=== PATIENT | male | born 1965 | race Hispanic/Latino ===

== ENCOUNTER → 2020-02-04 | Emergency (ER) | payer OTHER ==
[~2020-02-04] VITALS: Ht 175.3 cm; Wt 129.3 kg
[~2020-02-04] MED LIST: OXYMETAZOLINE HCL 0.05% NAS 1 SPRAY BTL ONE
--- NOTE | 2020-02-04 06:13 | Emergency Department Note ---
History of Present Illnes History of Present Illness Chief Complaint: Eye, Ear, Nose, Throat, Dental History of Present Illness This is a 54 year old male arrives to the ED D with complaints of bleeding from his left Gross a few using a nostrum earlier in the day. Per patient bleeding has been intermittent and was generally controlled throughout the day. 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 Any updates have been documented here. Review of Systems Review of Systems Constitutional: Reports no symptoms EENTM: Reports other (nosebleed) Cardiovascular: Reports no symptoms Respiratory: Reports no symptoms Gastrointestinal: Reports no symptoms Genitourinary: Reports no symptoms Musculoskeletal: Reports no symptoms Integumentary: Reports no symptoms Neurological: Reports no symptoms Psychological: Reports no symptoms Endocrine: Reports no symptoms Hematological/Lymphatic: Reports no symptoms Physical Exam Related Data Vital signs reviewed: Yes Physical Exam CONSTITUTIONAL Constitutional: Present well-developed, Present well-nourished HENT HENT: Present normocephalic, Present atraumatic, Present oropharynx clear/moist, Present nasal discharge (slow bleed noted from left nare) HENT L/R: Present left ext ear normal, Present right ext ear normal EYES Eyes: Reports PERRL, Reports conjunctivae normal NECK Neck: Present ROM normal PULMONARY Pulmonary: Present effort normal, Present breath sounds normal CARDIOVASCULAR Cardiovascular: Present regular rhythm, Present heart sounds normal, Present capillary refill normal, Present normal rate GASTROINTESTINAL Abdominal: Present soft, Present nontender, Present bowel sounds normal GENITOURINARY Genitourinary: Present exam deferred SKIN Skin: Present warm, Present dry MUSCULOSKELETAL Musculoskeletal: Present ROM normal NEUROLOGICAL Neurological: Present alert, Present oriented x 3, Present no gross motor or sensory deficits PSYCHOLOGICAL Psychological: Present mood/affect normal, Present judgement normal Procedures Epistaxis Control Time out performed: Yes Nostril: left Direct inspection: anterior source identified Clots removed by: blowing nose Epistaxis treatment: nasal tampon Results of treatment: bleeding controlled, treatment well tolerated Complications: none Assessment & Plan Medical Decision Making MDM 54-year-old male arrives to the ED with bleeding from his left neck, anterior Rhino Rocket placed, patient tolerated well. Patient's bleeding controlled, stable for outpatient ENT follow-up Assessment & Plan Final Impression: (1) Epistaxis Depart Disposition: HOME, SELF-CARE Medications in the ED Oxymetazoline HCl 15 spray STK-MED ONCE .ROUTE ; Start 02/04/20 at 05:44; Stop 02/04/20 at 05:38; Status DC NIRALI MATOS, Feb 04, 2020 06:13
== END | disposition home or self-care (01) ==
LOC: ER 05:43
DX: R04.0 Epistaxis (principal); I10 Essential (primary) hypertension; Z85.6 Personal history of leukemia
CPT/HCPCS: 99282

== ENCOUNTER 2020-02-14 04:30 | Emergency (ER) | payer OTHER ==
[~2020-02-14] VITALS: Ht 175.3 cm; Wt 129.3 kg
--- NOTE | 2020-02-14 04:39 | NUR ---
RHINO ROCKET PLACED ON LEFT NOSTRIL BY DR PILLAI
[2020-02-14] MEDS ORDERED: OXYMETAZOLINE HCL 0.05% NAS 1 SPRAY BTL ONE ×2 (04:41→04:45)
[2020-02-14] MEDS ORDERED: CLONIDINE HCL 0.2 MG TAB ONE (04:41)
[2020-02-14] MEDS ORDERED: CLONIDINE HCL 0.2 MG TAB PO ONE (04:45)
--- NOTE | 2020-02-14 04:59 | Emergency Department Note ---
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 PATIENT WENT TO ENT DOCTOR FOR SAME CONCERN AND HAD A BLEEDING SPOT IN LEFT SIDE OF NOSE CAUTERIZED BY DR RUSSELL.. Historian: Patient Onset (how long ago): hour(s) (3) Location: LEFT NARE Quality: BLEEDING Radiation: Reports non-radiation Severity: moderate Onset quality: sudden Duration (how long): hour(s) (3) Timing of current episode: constant Progression: worsening Chronicity: recurrent Context: Denies recent illness, Denies recent surgery Relieving factors: none Exacerbating factors: none Associated symptoms: Reports denies other symptoms Past Medical/Family History Physician Review I have reviewed the patient's past medical and family history. Any updates have been documented here. 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 Social History Smoking Cessation: Never Smoker Counseling Performed: No Alcohol Use: None Any Illegal Drug Use: No Other Last Tetanus: UTD Review of Systems Review of Systems Constitutional: Reports no symptoms EENTM: Reports as per HPI Cardiovascular: Reports no symptoms Respiratory: Reports no symptoms Gastrointestinal: Reports no symptoms Genitourinary: Reports no symptoms Musculoskeletal: Reports no symptoms Integumentary: Reports no symptoms Neurological: Reports no symptoms Psychological: Reports no symptoms Endocrine: Reports no symptoms Hematological/Lymphatic: Reports no symptoms Physical Exam Related Data Allergies: Coded Allergies: No Known Allergies (Unverified , 02/04/20) Triage Vital Signs Vital Signs Date Time Temp Pulse Resp B/P (MAP) Pulse Ox O2 Delivery O2 Flow Rate FiO2 02/14/20 04:33 98.1 73 16 201/77 100 Vital signs reviewed: Yes Physical Exam CONSTITUTIONAL Constitutional: Present well-developed, Present well-nourished HENT HAD PT BLOW NOSE TO CLEAR CLOTS FORM LEFT NARE, PT WITH MODERATED BLEEDING AFTER CLOTS CLEARED HENT: Present normocephalic, Present atraumatic, Present oropharynx clear/moist HENT L/R: Present left ext ear normal, Present right ext ear normal EYES Eyes: Reports PERRL, Reports conjunctivae normal NECK Neck: Present ROM normal PULMONARY Pulmonary: Present effort normal, Present breath sounds normal CARDIOVASCULAR Cardiovascular: Present regular rhythm, Present heart sounds normal, Present capillary refill normal, Present normal rate GASTROINTESTINAL Abdominal: Present soft, Present nontender, Present bowel sounds normal GENITOURINARY Genitourinary: Present exam deferred SKIN Skin: Present warm, Present dry MUSCULOSKELETAL Musculoskeletal: Present ROM normal NEUROLOGICAL Neurological: Present alert, Present oriented x 3, Present no gross motor or sensory deficits PSYCHOLOGICAL Psychological: Present mood/affect normal, Present judgement normal Procedures Epistaxis Control Time out performed: No Nostril: left Direct inspection: anterior source identified Inspection method: nasal speculum Clots removed by: blowing nose Epistaxis treatment: inflatable pack Results of treatment: bleeding controlled Complications: none Assessment & Plan Medical Decision Making MDM PT WITH ELEVATED BLOOD PRESSURE AND EPISTAXIS FROM LEFT NARE, CLONIDINE 0.2 MG PO ORDERED I SPOKE WITH DR RUSSELL PT'S ENT AND HE STATES TO PLACE RHINOROCKET AND HAVE PT FOLLOW UP IN OFFICE ON Sunday. Reassessment Reassessment time: 05:19 Reassessment BP NOW 164/81 NO NASAL BLEEDING SINCE RHINOROCKET PLACED Assessment & Plan Final Impression: (1) HTN (hypertension) (2) Epistaxis Depart Disposition: HOME, SELF-CARE Last Vital Signs Date Time Temp Pulse Resp B/P (MAP) Pulse Ox O2 Delivery O2 Flow Rate FiO2 02/14/20 04:36 201/77 02/14/20 04:33 98.1 73 16 100 Medications in the ED Oxymetazoline HCl ONCE ONCE NA Last administered on 02/14/20at 04:40; Admin Dose 1 SPRAY; Start 02/14/20 at 04:45; Stop 02/14/20 at 04:46; Status DC Clonidine HCl 0.2 mg ONCE ONCE PO Last administered on 02/14/20at 04:36; Admin Dose 0.2 MG; Start 02/14/20 at 04:45; Stop 02/14/20 at 04:46; Status DC Clonidine HCl 0.2 mg STK-MED ONCE .ROUTE ; Start 02/14/20 at 04:41; Stop 02/14/20 at 04:35; Status DC Oxymetazoline HCl 15 spray STK-MED ONCE .ROUTE ; Start 02/14/20 at 04:41; Stop 02/14/20 at 04:35; Status DC ABDULAZIZ PILLAI MD Feb 14, 2020 04:59
== END 2020-02-14 05:38 | disposition home or self-care (01) ==
LOC: ER 05:00
DX: R04.0 Epistaxis (principal); I10 Essential (primary) hypertension; Z85.6 Personal history of leukemia
CPT/HCPCS: 99283